=== PATIENT | female | born 1990 | race Caucasian/White ===

== ENCOUNTER 2017-12-23 18:49 | Emergency (ER) | payer OTHER, SELFPAY ==
--- NOTE | 2017-12-23 19:13 | ER ---
Nurse's Notes [facility] Name: Maritza De Age: 27 yrs Sex: Female : 1990 Arrival Date: 12/23/2017 Time: 18:53 Bed 11 Private MD: None, None Diagnosis: Otitis externa;Dental caries Presentation: 12/23 19:01 Presenting complaint: Patient states: Eight ear pain for over 1 week and left tooth aj pain for 2 days. Patient has swelling noted to left side of face. Transition of care: patient was not received from another setting of care. Onset of symptoms was December 16, 2017. Risk Assessment: Do you want to hurt yourself or someone else? Patient reports no desire to harm self or others. Initial Sepsis Screen: Does the patient meet any 2 criteria? No. Patient's initial sepsis screen is negative. Does the patient have a suspected source of infection? No. Patient's initial sepsis screen is negative. Care prior to arrival: None. 19:01 Method Of Arrival: Ambulatory 19:01 Acuity: ELLIE 4 aj Triage Assessment: 19:02 General: Appears in no apparent distress. comfortable, Behavior is calm, cooperative, aj appropriate for age. Pain: Complains of pain in left cheek and right ear. EENT: Reports pain in left cheek and right ear. Neuro: Level of Consciousness is awake, alert, obeys commands, Oriented to person, place, time, situation, Appropriate for age. Respiratory: Airway is patent Respiratory effort is even, unlabored, Respiratory pattern is regular, symmetrical. Derm: Skin is intact, is healthy with good turgor, Skin is pink, warm \T\ dry. normal. 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 - Social history:: Smoking status: Patient uses tobacco products, smokes one-half pack cigarettes per day. - Ebola Screening: : Patient negative for fever greater than or equal to 101.5 degrees Fahrenheit, and additional compatible Ebola Virus Disease symptoms Patient denies exposure to infectious person Patient denies travel to an Ebola-affected area in the 21 days before illness onset No symptoms or risks identified at this time. - Family history:: not pertinent. - Hospitalizations: : No recent hospitalization is reported. Screenin:16 Abuse screen: Denies threats or abuse. Nutritional screening: No deficits noted. rk2 Tuberculosis screening: No symptoms or risk factors identified. Fall Risk None identified. Vital Signs: 19:02 BP 112 / 68; Pulse 76; Resp 19; Temp 98.6; Pulse Ox 99% on R/A; Weight 58.97 kg; Height aj 5 ft. 1 in. (154.94 cm); 19:02 Body Mass Index 24.56 (58.97 kg, 154.94 cm) ED Course: 18:53 Patient arrived in ED. sb2 18:54 None, None is Private Physician. sb2 19:01 Heather Rees, RN is Primary Nurse. aj 19:02 Triage completed. aj 19:02 Arm band placed on right wrist. Patient placed in an exam room. aj 19:03 Aguila Saez MD is Attending Physician. rn 19:09 Deborah Flores RN is Primary Nurse. rk2 19:16 Patient has correct armband on for positive identification. Bed in low position. Call rk2 light in reach. 19:17 No provider procedures requiring assistance completed. Patient did not have IV access rk2 during this emergency room visit. Administered Medications: No medications were administered Outcome: 19:12 Discharge ordered by . rn 19:17 Discharged to home ambulatory. rk2 19:17 Condition: good 19:17 Discharge instructions given to patient, Prescriptions given X 2. 19:18 Patient left the ED. rk2 Signatures: Heather Rees RN RN aj Nieto, Roman, MD MD rn Kidder, Rhonda, RN RN rk2 Karen Cronin sb2
--- NOTE | 2017-12-23 19:13 | EDPHYS ---
Physician Documentation [facility] Name: Maritza De Age: 27 yrs Sex: Female : 1990 Arrival Date: 12/23/2017 Time: 18:53 Bed 11 Private MD: None, None ED Physician Aguila Saez HPI: 12/23 19:09 This 27 yrs old Female presents to ER via Ambulatory with complaints of rn Toothache. 19:09 The patient presents with pain. The problem is located in the right ear. Onset: The rn symptoms/episode began/occurred 2 week(s) ago. Modifying factors: The symptoms are alleviated by nothing, the symptoms are aggravated by nothing. Severity of symptoms: At their worst the symptoms were mild, in the emergency department the symptoms are unchanged. The patient has experienced a previous episode. The patient has been recently seen by a physician:. Recently diagnosed with external ear infection, states got better with drops, then got worse again, no fever, also having a flare of tooth pain.. 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 - Social history:: Smoking status: Patient uses tobacco products, smokes one-half pack cigarettes per day. - Ebola Screening: : Patient negative for fever greater than or equal to 101.5 degrees Fahrenheit, and additional compatible Ebola Virus Disease symptoms Patient denies exposure to infectious person Patient denies travel to an Ebola-affected area in the 21 days before illness onset No symptoms or risks identified at this time. - Family history:: not pertinent. - Hospitalizations: : No recent hospitalization is reported. ROS: 19:09 Constitutional: Negative for fever, chills, and weight loss, Eyes: Negative for injury, rn pain, redness, and discharge, ENT: + right ear pain and swelling Neck: Negative for injury, pain, and swelling, Cardiovascular: Negative for chest pain, palpitations, and edema, Respiratory: Negative for shortness of breath, cough, wheezing, and pleuritic chest pain, Abdomen/GI: Negative for abdominal pain, nausea, vomiting, diarrhea, and constipation, MS/Extremity: Negative for injury and deformity, Skin: Negative for injury, rash, and discoloration, Neuro: Negative for headache, weakness, numbness, tingling, and seizure. Exam: 19:09 Constitutional: This is a well developed, well nourished patient who is awake, alert, rn and in no acute distress. Head/Face: Normocephalic, atraumatic. Eyes: Pupils equal round and reactive to light, extra-ocular motions intact. Lids and lashes normal. Conjunctiva and sclera are non-icteric and not injected. Cornea within normal limits. Periorbital areas with no swelling, redness, or edema. ENT: + right external auditory meatus with swelling, able to visualize portion of TM, no perforation. No oral infection or swelling. Vital Signs: 19:02 BP 112 / 68; Pulse 76; Resp 19; Temp 98.6; Pulse Ox 99% on R/A; Weight 58.97 kg; Height aj 5 ft. 1 in. (154.94 cm); 19:02 Body Mass Index 24.56 (58.97 kg, 154.94 cm) aj MDM: 19:04 Patient medically screened. rn 19:09 Differential diagnosis: dental caries, external otitis. Data reviewed: vital signs, rn nurses notes, and as a result, I will discharge patient. Counseling: I had a detailed discussion with the patient and/or guardian regarding: the historical points, exam findings, and any diagnostic results supporting the discharge/admit diagnosis, the need for outpatient follow up, to return to the emergency department if symptoms worsen or persist or if there are any questions or concerns that arise at home. Special discussion: I discussed with the patient/guardian in detail that at this point there is no indication for admission to the hospital. It is understood, however, that if the symptoms persist or worsen the patient needs to return immediately for re-evaluation. Administered Medications: No medications were administered Disposition: 12/23/17 19:12 Discharged to Home. Impression: Otitis externa, Dental caries. - Condition is Stable. - Discharge Instructions: Dental Pain, Otitis Externa. - Prescriptions for Augmentin 875- 125 mg Oral Tablet - take 1 tablet by ORAL route every 12 hours for 10 days; 20 tablet. Cortisporin- TC 3.3-3-10-0.5 mg/mL Otic Suspension - instill 4 drop by OTIC route every 6 hours; 1 bottle. - Medication Reconciliation Form, Thank You Letter, Antibiotic Education, Prescription Opioid Use form. - Follow up: Private Physician; When: As needed; Reason: Recheck today's complaints, Re-evaluation by your physician. - Problem is an ongoing problem. - Symptoms have improved. Signatures: Heather Rees RN RN aj Nieto, Roman, MD MD rn Kidder, Rhonda, RN RN rk2 Corrections: (The following items were deleted from the chart) 19:18 19:12 12/23/2017 19:12 Discharged to Home. Impression: Otitis externa; Dental caries. rk2 Condition is Stable. Forms are Medication Reconciliation Form, Thank You Letter, Antibiotic Education, Prescription Opioid Use. Follow up: Private Physician; When: As needed; Reason: Recheck today's complaints, Re-evaluation by your physician. Problem is an ongoing problem. Symptoms have improved. rn
== END 2017-12-23 19:18 | disposition home or self-care (01) ==
LOC: ER 18:49
DX: K02.9 Dental caries, unspecified (principal); H60.91 Unspecified otitis externa, right ear; F17.210 Nicotine dependence, cigarettes, uncomplicated
CPT/HCPCS: 99282